=== PATIENT | female | born 1965 | race Caucasian/White ===

== ENCOUNTER → 2017-11-25 | Outpatient (CLI) | payer OTHER ==
[~2017-11-25] MED LIST: CROM10DR8 OP; GENT3.5O26 OP; GOLYTE PO; THYR15TA6 PO
== END ==
LOC: LAB 12:28
PROVIDERS: ATTEND Nurse Practitioner Family
DX: E03.8 Other specified hypothyroidism (principal); R53.83 Other fatigue; E53.8 Deficiency of other specified B group vitamins; E61.1 Iron deficiency; D51.0 Vitamin B12 deficiency anemia due to intrinsic factor deficiency
CPT/HCPCS: 36415; 82040; 82247; 82306; 82310; 82374; 82435; 82565; 82607; 82728; 82947; 84075; 84132; 84155; 84295; 84443; 84450; 84460; 84520; 85027

== ENCOUNTER → 2017-12-16 | Emergency (ER) | payer OTHER ==
[~2017-12-16] MED LIST changes: +IOPAMIDOL 76% 75 ML INFUS BTL 75 ML ONE; +NS(*) 0.9% 1000 ML BAG 1,000 ML IV ONE; +ONDA4TAB PO; +ONDANSETRON 4 MG/2 ML VIAL IVP ONE
--- NOTE | 2017-12-16 11:10 | ER Report ---
History and Physical Time Seen By MD: 11:09 Hx. of Stated Complaint: UNCONTROLLED NAUSEA SINCE 1AM. CHEST TIGHTNESS HPI/ROS CHIEF COMPLAINT: Nausea HISTORY OF PRESENT ILLNESS: 52-year-old female patient presents to emergency room with complaint of nausea. Patient states this started approximately 1:00 in the morning. She states she had some lower abdominal pain. She states that she had a bout of diarrhea. She states since then she's not had any bowel movements. She states that she is not been able to drink anything as infection does she vomits. She states that she may been able to keep down a small amount of water prescribed, but does has not been able to keep down very much. She states she did take some Pepto-Bismol with no improvement. She denies having any fevers, chills. Patient states she does have some chest tightness. Patient states she does have a history of appendectomy. REVIEW OF SYSTEMS: Respiratory: No cough, no dyspnea. Cardiovascular: No chest pain, no palpitations. Gastrointestinal: As noted above Musculoskeletal: No back pain. 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 Patient has a surgical history of appendectomy. Reviewed Nurses Notes: Yes Hx Smoking: No Smoking Status: Former Smoker Exposure to Second Hand Smoke?: No Hx Substance Use Disorder: No Hx Alcohol Use: No Constitutional Vital Sign - Last 24 Hours 12/16/17 12/16/17 12/16/17 12/16/17 10:59 11:03 11:04 11:14 Temp 98.3 Pulse ??? 114 112 Resp 16 B/P (MAP) 112/81 (91) 112/81 Pulse Ox 92 93 O2 Delivery Room Air 12/16/17 12/16/17 12/16/17 12/16/17 11:30 11:44 11:49 12:00 Pulse 114 101 B/P (MAP) 111/77 (88) 106/73 (84) Pulse Ox 94 95 12/16/17 12/16/17 12/16/17 12/16/17 12:04 12:19 12:30 12:34 Pulse 93 ??? 101 Resp 7 7 B/P (MAP) 111/76 (88) Pulse Ox 98 96 12/16/17 12/16/17 12/16/17 12:49 12:54 13:00 Pulse 96 104 Resp 9 9 B/P (MAP) 104/80 (88) Pulse Ox 98 98 Intake and Output 12/16/17 12/16/17 12/17/17 15:00 23:00 07:00 Intake Total 1000 ml Balance 1000 ml Physical Exam General Appearance: The patient is alert, has no immediate need for airway protection and no current signs of toxicity. ENT: Tympanic membranes are pearly-hyatt, auditory canals are patent, mixed mucous membranes are moist. Respiratory: Chest is non tender, lungs are clear to auscultation. Cardiac: regular rate and rhythm Gastrointestinal: Abdomen is soft and tender in the bilateral upper quadrants, no masses, bowel sounds are hyperactive in the right lower quadrant, hypoactive in the left upper and lower quadrants. Musculoskeletal: Neck: Neck is supple and non tender. Extremities have full range of motion and are non tender. Skin: No rashes or lesions. DIFFERENTIAL DIAGNOSIS: After history and physical exam differential diagnosis was considered for abdominal pain including but not limited to appendicitis, cholecystitis, gastritis and urinary tract infection. The differential is NE and bowel obstruction. Medical Decision Making Data Points Result Diagram: 12/16/17 1114 12/16/17 1114 Laboratory Hematology Test 12/16/17 11:14 12/16/17 11:42 Red Blood Count 5.17 M/uL (4.17-5.56) Mean Corpuscular Volume 89.8 fL (80.0-96.0) Mean Corpuscular Hemoglobin 31.0 pg (26.0-33.0) Mean Corpuscular Hemoglobin Concent 34.6 g/dL (32.0-36.0) Red Cell Distribution Width 13.7 % (11.5-14.5) Mean Platelet Volume 8.5 fL (7.2-11.1) Neutrophils (%) (Auto) 95.0 % (39.4-72.5) Lymphocytes (%) (Auto) 2.3 % (17.6-49.6) Monocytes (%) (Auto) 2.3 % (4.1-12.4) Eosinophils (%) (Auto) 0.2 % (0.4-6.7) Basophils (%) (Auto) 0.2 % (0.3-1.4) Nucleated RBC Relative Count (auto) 0.0 /100WBC Neutrophils # (Auto) 8.8 K/uL (2.0-7.4) Lymphocytes # (Auto) 0.2 K/uL (1.3-3.6) Monocytes # (Auto) 0.2 K/uL (0.3-1.0) Eosinophils # (Auto) 0.0 K/uL (0.0-0.5) Basophils # (Auto) 0.0 K/uL (0.0-0.1) Nucleated RBC Absolute Count (auto) 0.00 K/uL Sodium Level 141 mmol/L (137-145) Potassium Level 3.5 mmol/L (3.5-5.0) Chloride Level 106 mmol/L (98-107) Carbon Dioxide Level 21 mmol/L (22-31) Blood Urea Nitrogen 21 mg/dl (7-18) Creatinine 0.80 mg/dl (0.52-1.04) Glomerular Filtration Rate Calc > 60.0 Random Glucose 111 mg/dl (75-110) Calcium Level 9.2 mg/dl (8.4-10.2) Total Bilirubin 0.8 mg/dl (0.2-1.3) Aspartate Amino Transf (AST/SGOT) 23 U/L (0-35) Alanine Aminotransferase (ALT/SGPT) 30 U/L (0-56) Alkaline Phosphatase 90 U/L (0-126) Troponin I < 0.012 ng/ml Total Protein 7.5 gm/dl (6.3-8.2) Albumin 4.1 g/dl (3.5-5.0) Amylase Level 80 U/L (0-110) Lipase 67 U/L (23-300) Human Chorionic Gonadotropin, Qual Negative (NEGATIVE) Urine Color Yellow Urine Clarity Clear Urine pH 5.0 pH (4.8-9.5) Urine Specific [place] 1.026 Urine Protein Negative mg/dL (NEGATIVE) Urine Glucose (UA) Negative mg/dL (NEGATIVE) Urine Ketones 20 mg/dL (NEGATIVE) Urine Blood Negative (NEGATIVE) Urine Nitrite Negative (NEGATIVE) Urine Bilirubin Negative (NEGATIVE) Urine Urobilinogen Negative mg/dL (0.2-1.9) Urine Leukocyte Esterase Negative (NEGATIVE) Urine RBC None /HPF (0-2/HPF) Urine WBC 1 /HPF (0-5/HPF) Urine Squamous Epithelial Cells None /LPF (</=FEW) Urine Bacteria Negative /HPF (NONE-FEW) Urine Mucus Few /HPF (NONE-FEW) Chemistry Test 12/16/17 11:14 12/16/17 11:42 White Blood Count 9.3 k/uL (4.5-11.0) Red Blood Count 5.17 M/uL (4.17-5.56) Hemoglobin 16.1 g/dL (12.0-16.0) Hematocrit 46.4 % (34.0-47.0) Mean Corpuscular Volume 89.8 fL (80.0-96.0) Mean Corpuscular Hemoglobin 31.0 pg (26.0-33.0) Mean Corpuscular Hemoglobin Concent 34.6 g/dL (32.0-36.0) Red Cell Distribution Width 13.7 % (11.5-14.5) Platelet Count 220 K/uL (150-450) Mean Platelet Volume 8.5 fL (7.2-11.1) Neutrophils (%) (Auto) 95.0 % (39.4-72.5) Lymphocytes (%) (Auto) 2.3 % (17.6-49.6) Monocytes (%) (Auto) 2.3 % (4.1-12.4) Eosinophils (%) (Auto) 0.2 % (0.4-6.7) Basophils (%) (Auto) 0.2 % (0.3-1.4) Nucleated RBC Relative Count (auto) 0.0 /100WBC Neutrophils # (Auto) 8.8 K/uL (2.0-7.4) Lymphocytes # (Auto) 0.2 K/uL (1.3-3.6) Monocytes # (Auto) 0.2 K/uL (0.3-1.0) Eosinophils # (Auto) 0.0 K/uL (0.0-0.5) Basophils # (Auto) 0.0 K/uL (0.0-0.1) Nucleated RBC Absolute Count (auto) 0.00 K/uL Glomerular Filtration Rate Calc > 60.0 Calcium Level 9.2 mg/dl (8.4-10.2) Total Bilirubin 0.8 mg/dl (0.2-1.3) Aspartate Amino Transf (AST/SGOT) 23 U/L (0-35) Alanine Aminotransferase (ALT/SGPT) 30 U/L (0-56) Alkaline Phosphatase 90 U/L (0-126) Troponin I < 0.012 ng/ml Total Protein 7.5 gm/dl (6.3-8.2) Albumin 4.1 g/dl (3.5-5.0) Amylase Level 80 U/L (0-110) Lipase 67 U/L (23-300) Human Chorionic Gonadotropin, Qual Negative (NEGATIVE) Urine Color Yellow Urine Clarity Clear Urine pH 5.0 pH (4.8-9.5) Urine Specific [place] 1.026 Urine Protein Negative mg/dL (NEGATIVE) Urine Glucose (UA) Negative mg/dL (NEGATIVE) Urine Ketones 20 mg/dL (NEGATIVE) Urine Blood Negative (NEGATIVE) Urine Nitrite Negative (NEGATIVE) Urine Bilirubin Negative (NEGATIVE) Urine Urobilinogen Negative mg/dL (0.2-1.9) Urine Leukocyte Esterase Negative (NEGATIVE) Urine RBC None /HPF (0-2/HPF) Urine WBC 1 /HPF (0-5/HPF) Urine Squamous Epithelial Cells None /LPF (</=FEW) Urine Bacteria Negative /HPF (NONE-FEW) Urine Mucus Few /HPF (NONE-FEW) Urinalysis Test 12/16/17 11:42 Urine Color Yellow Urine Clarity Clear Urine pH 5.0 pH (4.8-9.5) Urine Specific [place] 1.026 Urine Protein Negative mg/dL (NEGATIVE) Urine Glucose (UA) Negative mg/dL (NEGATIVE) Urine Ketones 20 mg/dL (NEGATIVE) Urine Blood Negative (NEGATIVE) Urine Nitrite Negative (NEGATIVE) Urine Bilirubin Negative (NEGATIVE) Urine Urobilinogen Negative mg/dL (0.2-1.9) Urine Leukocyte Esterase Negative (NEGATIVE) Urine RBC None /HPF (0-2/HPF) Urine WBC 1 /HPF (0-5/HPF) Urine Squamous Epithelial Cells None /LPF (</=FEW) Urine Bacteria Negative /HPF (NONE-FEW) Urine Mucus Few /HPF (NONE-FEW) EKG/Imaging EKG Interpretation 12 lead EKG: Rhythm: Sinus tachycardia with a ventricular rate of 105 bpm [place]: normal QRS: normal ST segments: normal Imaging CT abdomen and pelvis with IV contrast Indication: Abdominal pain and vomiting. Comparison: None available. . Technique: Axial CT images were obtained through the abdomen and pelvis during injection of nonionic iodinated intravenous contrast. Reformatted coronal and sagittal images were also obtained. One of the following dose optimization techniques was utilized in the performance of this exam: Automated exposure control; adjustment of the mA and/ or kV according to the patient's size; or use of an iterative reconstruction technique. Specific details can be referenced in the facility's radiology CT exam operational policy. Contrast: 75 ml of Isovue-370 IV contrast. Findings: Lower lung condon: Limited views lower lung field are unremarkable. Liver: No focal parenchymal abnormality of the liver. Biliary: Gallbladder appears unremarkable as well as the intra and extra hepatic biliary system. Pancreas: Normal appearance. Spleen: Normal appearance. Adrenal glands: Unremarkable. Kidneys / retroperitoneum: No evidence of nephrolithiasis or hydronephrosis. No focal normality. Bowel / peritoneum / mesenteries: The visualized gastrointestinal tract is within normal limits. The appendix is not visualized. No secondary signs of appendicitis. The stomach is unremarkable. No free air, free fluid, fluid collections or areas of inflammation. Small umbilical hernia containing fat. Lymph node assessment: No pathologic adenopathy identified. Pelvic structures: The uterus shows at least 3 hypodense nodules, largest measuring 1.8 cm. The uterus and ovaries otherwise unremarkable. The remaining pelvic structures visualized within normal limits. Vessels: No significant atherosclerotic calcifications seen throughout a nonaneurysmal abdominal aorta and branches. Musculoskeletal / Body wall: No acute or aggressive osseous abnormality. IMPRESSION: 1. No acute intra-abdominal abnormality 2. Hypodense nodules in the uterus are most likely small fibroids. Report Dictated By: Cory Acevedo at 12/16/2017 12:34 PM Report E-Signed By: Cory Acevedo at 12/16/2017 12:40 PM 2 VIEWS CHEST INDICATION: Chest tightness. COMPARISON: None available FINDINGS: Cardiomediastinal silhouette and pulmonary vessels within normal limits. There is no focal infiltrate or lobar consolidation. There is no pneumothorax or pleural effusion. No nodule. Upper abdomen is unremarkable. No acute bony abnormality. IMPRESSION: 1. No acute cardiopulmonary process. Report Dictated By: Cory Acevedo at 12/16/2017 12:30 PM Report E-Signed By: Cory Acevedo at 12/16/2017 12:32 PM ED Course/Re-evaluation ED Course Patient was admitted and examined, history and physical were obtained. Differential diagnoses were considered. On reexamination patient had some tenderness in the bilateral upper quadrants, bowel sounds are hyperactive in the right lower quadrant. With patient having a history of an appendicitis that resulted in pick surgical scar I was more concerned about possible adhesion and small bowel obstruction. A CBC, CMP, CT scan of abdomen and pelvis were done. Labs were unremarkable, CT scan also showed no acute findings. I discussed finding with the patient. I believe she is likely having a gastroenteritis. Patient did receive 4 mg Zofran here in the emergency room. She states she did feel better after that. We did trial her on some water and had no worsening nausea or vomiting. We will go ahead and discharge patient home at this time. She is to take Pepto-Bismol as needed for diarrhea and cramping. She is follow- up with her primary care provider next week. She is return to emergency room if condition worsens. Patient and her verbalized understanding and agreement with plan. Decision to Disposition Date: Dec 16, 2017 Decision to Disposition Time: 13:22 Depart Departure Latest Vital Signs Vital Signs Date Time Temp Pulse Resp B/P (MAP) Pulse Ox O2 Delivery O2 Flow Rate FiO2 12/16/17 13:00 104/80 (88) 12/16/17 12:54 104 9 98 12/16/17 11:04 98.3 Room Air Impression: Primary Impression: Gastroenteritis Condition: Improved Disposition: HOME OR SELF-CARE Referrals: KINDRA FLEMING (PCP) New Scripts Ondansetron (ZOFRAN ODT) 4 Mg Tab.rapdis 4 MG PO Q6H Y for NAUSEA/VOMITING, #20 TAB.MATILDE Prov: JUVE HENDERSON 12/16/17 Patient Instructions: Gastroenteritis (ED) Additional Instructions: Increase fluid intake. Clear liquid diet for the next 24-48 hours. After that you may advance diet as tolerated starting with complex carbohydrates ; rice, bread or pasta. Follow up with your primary care provider in the next week. Return to the ER if condition worsens. You may take over the counter Pepto Bismol as needed for cramping, diarrhea and discomfort. JUVE HENDERSON Dec 16, 2017 11:10
--- NOTE | 2017-12-16 11:33 | EKG ---
FACILITY: [facility] - [place] PATIENT NAME: ANAT RODRIGUEZ : [id number] MR: [id number] V: [id number] EXAM DATE: ORDERING PHYSICIAN: JUVE HENDERSON TECHNOLOGIST: SHADY Bell Reason : CHEST PRESSURE Blood Pressure : / mmHG Vent. Rate : 105 BPM Atrial Rate : 105 BPM P-R Int : 176 ms QRS Dur : 076 ms QT Int : 304 ms P-R-T Axes : 061 077 070 degrees QTc Int : 401 ms Sinus tachycardia Cannot rule out Anterior infarct , age undetermined T inversion consistent with ant/sep ischemia vs normal variant Diffuse, non-specific, T flattening No previous ECGs available Confirmed by LISETTE GAMINO ([id number]) on 12/16/2017 12:37:01 PM Referred By: JVUE Confirmed By:LISETTE GAMINO
[2017-12-16 11:37] LABS: PLATELET COUNT, AUTOMATED 220 K/uL (150-450)
--- NOTE | 2017-12-16 12:36 | RADIOLOGY IMAGING REPORT ---
[facility] PATIENT NAME: Renetta Alexander : 1965 MR: [id number] V: [id number] EXAM DATE: ORDERING PHYSICIAN: JUVE HENDERSON TECHNOLOGIST: Location: Patient: Renetta Alexander : 1965 Visit/Account:[id number] Date of Sevice: 12/16/2017 2 VIEWS CHEST INDICATION: Chest tightness. COMPARISON: None available FINDINGS: Cardiomediastinal silhouette and pulmonary vessels within normal limits. There is no focal infiltrate or lobar consolidation. There is no pneumothorax or pleural effusion. No nodule. Upper abdomen is unremarkable. No acute bony abnormality. IMPRESSION: 1. No acute cardiopulmonary process. Report Dictated By: Coyr Acevedo at 12/16/2017 12:30 PM Report E-Signed By: Cory Acevedo at 12/16/2017 12:32 PM WSN:[id number]
--- NOTE | 2017-12-16 12:44 | RADIOLOGY IMAGING REPORT ---
FACILITY: [facility] - [place] PATIENT NAME: Renetta Alexander : 1965 MR: [id number] V: [id number] EXAM DATE: ORDERING PHYSICIAN: JUVE HENDERSON TECHNOLOGIST: Location: [facility] Patient: Renetta Alexander : 1965 Visit/Account:[id number] Date of Sevice: 12/16/2017 CT abdomen and pelvis with IV contrast Indication: Abdominal pain and vomiting. Comparison: None available. . Technique: Axial CT images were obtained through the abdomen and pelvis during injection of nonioni c iodinated intravenous contrast. Reformatted coronal and sagittal images were also obtained. One of the following dose optimization techniques was utilized in the performance of this exam: Autom ated exposure control; adjustment of the mA and/or kV according to the patient's size; or use of an i terative reconstruction technique. Specific details can be referenced in the facility's radiology C T exam operational policy. Contrast: 75 ml of Isovue-370 IV contrast. Findings: Lower lung condon: Limited views lower lung field are unremarkable. Liver: No focal parenchymal abnormality of the liver. Biliary: Gallbladder appears unremarkable as well as the intra and extra hepatic biliary system. Pancreas: Normal appearance. Spleen: Normal appearance. Adrenal glands: Unremarkable. Kidneys / retroperitoneum: No evidence of nephrolithiasis or hydronephrosis. No focal normality. Bowel / peritoneum / mesenteries: The visualized gastrointestinal tract is within normal limits. The appendix is not visualized. No secondary signs of appendicitis. The stomach is unremarkable. No free air, free fluid, fluid collections or areas of inflammation. Small umbilical hernia containin g fat. Lymph node assessment: No pathologic adenopathy identified. Pelvic structures: The uterus shows at least 3 hypodense nodules, largest measuring 1.8 cm. The ut erus and ovaries otherwise unremarkable. The remaining pelvic structures visualized within normal matson its. Vessels: No significant atherosclerotic calcifications seen throughout a nonaneurysmal abdominal aort a and branches. Musculoskeletal / Body wall: No acute or aggressive osseous abnormality. IMPRESSION: 1. No acute intra-abdominal abnormality 2. Hypodense nodules in the uterus are most likely small fibroids. Report Dictated By: Cory Acevedo at 12/16/2017 12:34 PM Report E-Signed By: Cory Acevedo at 12/16/2017 12:40 PM WSN:[id number]
[2017-12-16 13:00] VITALS: BP 104/80
== END ==
LOC: ER 11:00
DX: K52.9 Noninfective gastroenteritis and colitis, unspecified (principal)
CPT/HCPCS: 71046; 74177; 81001; 82150; 83690; 84484; 84703; 85025; 93005; 96361; 96374; 99284; J2405; J7030; Q9967; 82040; 82247; 82310; 82374; 82435; 82565; 82947; 84075; 84132; 84155; 84295; 84450; 84460; 84520

== ENCOUNTER → 2017-12-23 | Outpatient (CLI) | payer OTHER ==
[~2017-12-23] MED LIST changes: -IOPAMIDOL 76% 75 ML INFUS BTL 75 ML ONE; -NS(*) 0.9% 1000 ML BAG 1,000 ML IV ONE; -ONDANSETRON 4 MG/2 ML VIAL IVP ONE
== END ==
LOC: LAB 09:31
PROVIDERS: ATTEND Nurse Practitioner Family
DX: D51.0 Vitamin B12 deficiency anemia due to intrinsic factor deficiency (principal)
CPT/HCPCS: 36415; 82607; 83921

== ENCOUNTER → 2018-02-01 | Outpatient (REF) ==
[2018-02-01 09:53] LABS: LDL CHOLESTEROL 127 mg/dl
== END ==
DX: Z02.9 Encounter for administrative examinations, unspecified (principal)

== ENCOUNTER → 2018-02-01 | Outpatient (CLI) | payer OTHER | LOC: LAB 07:50 | PROVIDERS: ATTEND Family Medicine | DX: E03.9 Hypothyroidism, unspecified (principal) | CPT/HCPCS: 84439; 84481; 86376; 86800 ==

== ENCOUNTER → 2018-02-17 | Outpatient (CLI) | payer OTHER ==
--- NOTE | 2018-02-18 15:44 | RADIOLOGY IMAGING REPORT ---
[place] [facility] [place] ANAT RODRIGUEZ : [id number] MR: [id number] V: [id number] EXAM DATE: [id number] ORDERING PHYSICIAN: KRISTI JESSICA TECHNOLOGIST: Jacquelyn Isaacs PROCEDURE:BILATERAL DIGITAL SCREENING MAMMOGRAM WITH CAD ASSISTED INTERPRETATION & 3D TOMOSYNTHESIS COMPARISON:Prior mammograms dated 01/08/17, 12/31/16, 09/24/15, 08/29/14, 04/03/13, 03/15/13 INDICATIONS:screening FINDINGS: Moderately fibroglandular tissue is seen throughout the breasts. The parenchymal pattern has remained stable allowing for difference in mammographic technique & patient positioning. There is no evidence of malignant appearing mass, malignant appearing calcification or other secondary sign of malignancy in either breast. DIAGNOSTIC CATEGORY 1--NEGATIVE. RECOMMENDATIONS: ROUTINE MAMMOGRAM AND CLINICAL EVALUATION. IMPRESSION: BIRADS 1: Negative No significant abnormality is seen. Dictated by: Laquita Haque M.D. on 02/17/2018 at 9:14 Transcribed by: QI on 02/17/2018 at 12:32 Approved by: Laquita Haque M.D. on 02/18/2018 at 15:44 [facility]
== END ==
LOC: MAMO 04:11
PROVIDERS: ATTEND Family Medicine
DX: Z12.31 Encounter for screening mammogram for malignant neoplasm of breast (principal)
CPT/HCPCS: 77063; 77067

== ENCOUNTER → 2018-02-17 | Outpatient (CLI) | payer OTHER ==
--- NOTE | 2018-02-17 16:29 | RADIOLOGY IMAGING REPORT ---
FACILITY: [facility] [place] PATIENT NAME: Renetta Alexander : 1965 MR: [id number] V: [id number] EXAM DATE: ORDERING PHYSICIAN: KRISTI JESSICA [place]CHN[place]: [place] [facility] [place] : 1965 Visit/Account:[id number] Date of Sevice: 02/17/2018 PELVIC HISTORY: Uterine enlargement TECHNIQUE: Transvaginal and transabdominal ultrasound pelvis. COMPARISON: CT abdomen pelvis December 16, 2017 FINDINGS: Uterus: ; 7.2 cm length x 2.5 cm AP x 4.2 cm transverse. Myometrium: Heterogeneous.. There are two contiguous hypoechoic slightly heterogeneous masses along the anterior aspect of the body the uterus one measuring 1 x 0.8 x 0.8 cm and one measuring 1.9 x 1.2 x 1.5 cm likely representing fibroids. There is a very subtle hypoechoic structure posterior aspect uterine body measuring 1 x 0.7 x 0.9 cm which could represent an additional fibroid. Endometrium: Unremarkable; double thickness 7.3 mm. Cervix: Nabothian cysts. Ovaries: Right - 2.5 x 1 x 2.4 cm Left - 1.7 x 0.8 x 2.2 cm Blood flow is documented in each ovary by duplex Doppler ultrasound. Adnexa: Grossly unremarkable. Free pelvic fluid: Mild. IMPRESSION: Uterine fibroids as described above largest measuring approximately 1.9 cm in diameter Mild free pelvic fluid Report Dictated By: Laquita Haque MD at 02/17/2018 4:21 PM Report E-Signed By: Laquita Haque MD at 02/17/2018 4:25 PM WSN:[email or web address]
== END ==
LOC: US 11:36
PROVIDERS: ATTEND Family Medicine
DX: D25.9 Leiomyoma of uterus, unspecified (principal); N88.8 Other specified noninflammatory disorders of cervix uteri
CPT/HCPCS: 76856

== ENCOUNTER → 2018-06-03 | Outpatient (CLI) | payer OTHER ==
[~2018-06-03] MED LIST changes: +LIOT5TAB18 PO; +RANI-325 PO
[2018-06-03 13:33] LABS: PLATELET COUNT, AUTOMATED 235 K/uL (150-450)
--- NOTE | 2018-06-03 16:16 | RADIOLOGY IMAGING REPORT ---
[place] [facility] [place] NAME: Renetta Alexander : 1965 MR: [id number] V: [id number] EXAM DATE: ORDERING PHYSICIAN: LUCIAN GAONA TECHNOLOGIST: Location: [facility] - [place], [place] Patient: Renetta Alexander : 1965 Visit/Account:[id number] Date of Sevice: 06/03/2018 KNEE 4 VIEW RIGHT Indication: Right knee swelling for two days Comparison: None available Findings: No evidence of fracture, dislocation, or acute osseous abnormality of the right knee. The joint spaces are well-maintained, but within the anterior medial joint space, small calcific dens ities are present consistent with loose bodies.. No evidence of joint effusion. There is no focal soft tissue abnormality. No evidence of radiopaque foreign body. IMPRESSION: 1. Loose bodies are noted within the medial anterior joint space. MRI may be of further benefit in evaluating the underlying articular surfaces. Report Dictated By: Abel Berg at 06/03/2018 3:57 PM Report E-Signed By: Abel Berg at 06/03/2018 4:11 PM WSN:[email or web address]
== END ==
LOC: LAB 13:20
PROVIDERS: ATTEND Nurse Practitioner Primary Care
DX: M25.561 Pain in right knee (principal)
CPT/HCPCS: 36415; 73564; 85025; 85651; 86038; 86140; 86430

== ENCOUNTER → 2018-06-17 | Outpatient (CLI) | payer OTHER ==
--- NOTE | 2018-06-17 17:06 | RADIOLOGY IMAGING REPORT ---
FACILITY: [facility] - [place] PATIENT NAME: Renetta Alexander : 1965 MR: [id number] V: [id number] EXAM DATE: ORDERING PHYSICIAN: MARTHA HARTMAN TECHNOLOGIST: Location: [facility] Patient: Renetta Alexander : 1965 Visit/Account:[id number] Date of Sevice: 06/17/2018 CERVICAL SPINE W/OBL F/E Indication: Pain., Comparison: None available. Findings: The prevertebral soft tissues are within normal limits. The vertebral body heights are well maintained. There is moderate to severe degenerative disc space disease present at C5-6. The remainder the disc spaces show only mild narrowing. At C5-6 there is also a mild grade 1 retrolisthesis measuring 3 mm. With flexion and extension no dynamic instability is identified. Oblique views show mild bilateral neural foraminal narrowing at C5-6. IMPRESSION: 1. Moderate to severe degenerative disc space disease at C5-6 with underlying grade 1 spondylolisthe sis. Mild bilateral neural foraminal narrowing is present at this level. The remainder of the cervi rafael spine shows only mild degenerative change. Report Dictated By: Abel Berg at 06/17/2018 4:59 PM Report E-Signed By: Abel Berg at 06/17/2018 5:01 PM WSN:[email or web address]
== END ==
LOC: RAD 16:04
PROVIDERS: ATTEND Chiropractor
DX: M43.12 Spondylolisthesis, cervical region (principal)
CPT/HCPCS: 72052

== ENCOUNTER → 2018-06-28 | Outpatient (CLI) | payer OTHER | LOC: LAB 07:43 | PROVIDERS: ATTEND Family Medicine | DX: E03.9 Hypothyroidism, unspecified (principal) | CPT/HCPCS: 36415; 84439; 84443; 84481 ==

== ENCOUNTER → 2018-11-29 | Outpatient (CLI) | payer OTHER | LOC: LAB 07:03 | PROVIDERS: ATTEND Family Medicine | DX: E55.9 Vitamin D deficiency, unspecified (principal); R73.01 Impaired fasting glucose | CPT/HCPCS: 82306; 83036 ==

== ENCOUNTER → 2018-11-29 | Outpatient (REF) ==
[2018-11-29 07:41] LABS: LDL CHOLESTEROL 102 mg/dl
== END ==
DX: Z02.9 Encounter for administrative examinations, unspecified (principal)

== ENCOUNTER → 2018-12-02 | Outpatient (CLI) | payer OTHER ==
--- NOTE | 2018-12-02 18:50 | RADIOLOGY IMAGING REPORT ---
FACILITY: [facility] PATIENT NAME: Renetta Alexander : 1965 MR: [id number] V: [id number] EXAM DATE: ORDERING PHYSICIAN: SPENSER OCHOA TECHNOLOGIST: Location: [facility] Patient: Renetta Alexander : 1965 Visit/Account:[id number] Date of Sevice: 12/02/2018 Transvaginal/transabdominal pelvic ultrasound. HISTORY: Postmenopausal bleeding. COMPARISON: 02/17/2018. The uterus measures 7.4 cm in sagittal length. A 1.4 cm heterogeneous mass consistent with a fibroid is present in the myometrium of the uterine fundus, slightly increased in size compared to previous. A 1.9 cm heterogeneous mass consistent with a fibroid is present in the myometrium of the upper uteri ne body, essentially unchanged. Elsewhere the uterus is mildly heterogeneous. The endometrial stripe is homogeneous measuring 6 mm in thickness. No free fluid. The adnexal vessels are unremarkable. The right ovary is unremarkable measuring 1.9 cm in length. The left ovary is unremarkable measuring 1.7 cm in length. Ovarian blood flow is normal bilaterally. IMPRESSION: 1.4 cm uterine fibroid, slightly increased compared to previous. 1.9 cm uterine fibroid, unchanged. Minimal uterine adenomyosis. Negative ovaries. Report Dictated By: Ignacio Lewis MD at 12/02/2018 6:43 PM Report E-Signed By: Ignacio Lewis MD at 12/02/2018 6:46 PM WSN:[id number]
== END ==
LOC: US 04:11
PROVIDERS: ATTEND Advanced Practice Midwife
DX: D25.9 Leiomyoma of uterus, unspecified (principal); N80.0 Endometriosis of uterus
CPT/HCPCS: 76856

== ENCOUNTER → 2019-01-23 | Outpatient (CLI) | payer OTHER ==
[~2019-01-23] MED LIST changes: +ESTR1POW41 MC; +ESTR42.5 PV
--- NOTE | 2019-01-23 14:54 | RADIOLOGY IMAGING REPORT ---
FACILITY: [facility] [place] PATIENT NAME: Renetta Alexander : 1965 MR: [id number] V: [id number] EXAM DATE: [id number] ORDERING PHYSICIAN: LUCIAN GAONA TECHNOLOGIST: Location: [facility] Patient: Renetta Alexander : 1965 Visit/Account:[id number] Date of Sevice: 01/23/2019 Exam type: KNEE 4 VIEW LEFT History: Left knee pain Comparison: Right knee June 03, 2018. Findings: Four views of the left knee are submitted There is no evidence of acute fracture or dislocation involving the left knee. There is very mild na rrowing of the patellofemoral compartment and medial compartment. No lytic or blastic bone lesions a re identified IMPRESSION: 1. There is very mild narrowing the patellofemoral compartment and medial compartment of the left kidney consistent with very mild degenerative changes Report Dictated By: Laquita Haque MD at 01/23/2019 2:49 PM Report E-Signed By: Laquita Haque MD at 01/23/2019 2:51 PM WSN:[id number]
== END ==
LOC: RAD 12:41
PROVIDERS: ATTEND Nurse Practitioner Primary Care
DX: M17.12 Unilateral primary osteoarthritis, left knee (principal)
CPT/HCPCS: 73564

== ENCOUNTER → 2019-02-06 | Outpatient (CLI) | payer OTHER | LOC: LAB 11:20 | PROVIDERS: ATTEND Family Medicine | DX: E03.9 Hypothyroidism, unspecified (principal) | CPT/HCPCS: 36415; 84439; 84443; 84481 ==

== ENCOUNTER → 2019-02-16 | Outpatient (CLI) | payer OTHER ==
--- NOTE | 2019-02-16 14:41 | RADIOLOGY IMAGING REPORT ---
FAC[place] [facility] [place]IENT NAME: Renetta Alexander : 1965 MR: [id number] V: [id number] EXAM DATE: ORDERING PHYSICIAN: VINCE MARKS TECHNOLOGIST: Location: [facility] Patient: Renetta Alexander : 1965 Visit/Account:[id number] Date of Sevice: 02/16/2019 MRI left knee without contrast Indication: Left knee pain. Comparison: Plain films 01/23/2019 are reviewed. Technique: Multiplanar, multisequence MRI examination is performed of the left knee without contrast. Findings: Examination of the medial compartment demonstrates focal intrameniscal signal within the medial menis cus at the junction of the body and the posterior horn. This does not meet strict criteria for a tear and likely reflects meniscal degeneration. The articular cartilage surfaces are normal. Examination of the lateral compartment demonstrates a normal lateral meniscus. Focal areas of chondro sis/fissuring involving the central lateral tibial plateau surface without edema-like signal. Examination of the patellofemoral compartment demonstrates severe chondrosis involving the median rid ge of the patella and extending along the lateral patellar surface. Multifocal areas of subchondral e alina-like signal are seen. There is adjacent lateral trochlear chondrosis which is less severe. There is osteophyte production. ACL and PCL are intact. The MCL is intact. There is mild edema surrounding the MCL at joint line. This could reflect a low-gr mariela sprain. Correlate clinically. The lateral collateral ligament complex is maintained. The extensor mechanism is intact. Intermediate sized joint effusion is seen. This extends into a popliteal cyst. There are 2 small join t bodies seen within the superior margin of the medial joint space deep to the medial gastrocnemius i nsertion. These measure 3 mm in size. IMPRESSION: 1. Intact left knee menisci and cruciate ligaments. Focal area of suspected meniscal degeneration inv olves the medial meniscus at the junction of the body and the posterior horn. 2. Severe patellofemoral compartment predominant osteoarthritis of the left knee. This can be seen wi th CPPD arthropathy. Correlate clinically. 3. Intermediate joint effusion which extends into a popliteal cyst. 4. Small joint bodies as described above. Report Dictated By: Bossman Wall at 02/16/2019 2:23 PM Report E-Signed By: Bossman Wall at 02/16/2019 2:33 PM WSN:[id number]
== END ==
LOC: MRI 00:05
PROVIDERS: ATTEND Orthopaedic Surgery
DX: M25.562 Pain in left knee (principal)

== ENCOUNTER → 2019-03-22 | Outpatient (CLI) | payer OTHER | LOC: LAB 08:50 | PROVIDERS: ATTEND Family Medicine | DX: E03.9 Hypothyroidism, unspecified (principal) | CPT/HCPCS: 36415; 84439; 84443; 84481 ==

== ENCOUNTER → 2019-04-26 | Outpatient (CLI) | payer OTHER | LOC: LAB 07:06 | PROVIDERS: ATTEND Family Medicine | DX: E03.9 Hypothyroidism, unspecified (principal) | CPT/HCPCS: 36415; 84439; 84443; 84481 ==

== ENCOUNTER 2019-05-04 07:00 | Outpatient (RCR) | payer OTHER ==
--- NOTE | 2019-03-02 22:11 | PT INITIAL EVALUATION ---
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 She reports that her L knee catches randomly and does not occur each day. She reports that she has difficulties with squatting, looking under the bed, and hiking. She reports that her L knee feels much weaker than her R knee. Furthermore, she reports that she feels like the L knee gives out following a hike [place]. Pain location is anterior knee. Pain scale is 2 on a ten point pain scale. 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 Strength: L hip abduction, extension, adduction, L quad, L VMO, L hamstrin- /5. R hip abduction, extension, adduction, R quad, R VMO, R hamstrin/5. Upper core: 4/5. Middle Core: 4-/5. Lower Core: 2+/5. B ankle PF and DF: 5/5. Palpation: TTP: she was not TTP throughout the visit. Special Tests: L VMO: engaged 0/10. minimal restriction with patella medial/lateral/superior/inferior, Mobility: Independent Gait: She demonstrated the following gait mechanics without an AD: decreased velocity, decreased R step length, and increased lateral trunk movement. Balance: Will test in the future ASSESSMENT: Renetta will benefit from skilled physical therapy addressing the listed impairments to improve function, QOL, and return to prior level of function. Short Term Goals 6 weeks: Pt will demonstrate significant improvements with VMO strength, hip abductors, core, hip extensors, hip adductors strength from baseline to 4+/5 or greater to improve function and QOL. 6 weeks: Pt will be independent with home exercise program. 6 weeks: Pt will be able to return to work and sports related activities without any knee pain to return to prior level of function. Patient's Goals abolish knee pain and become independent with home exercise program PLAN: Patient to be seen for Manual Therapy/STM/MET Strengthening/condition Range of Motion Work Hardening/Cond Stretching Neuromuscular Re-ed Closed Chain Program Electrical Stim Posture/Body mechanics Gait Trg/Balance Trg Biofeedback Home Exercise Program Therapeutic Activities 2-3x/week for 6 Weeks If you have any questions, comments, or concerns about this report or plan, please contact me at . Thank you, Oskar Jamil, PT, DPT MTDD
--- NOTE | 2019-03-31 08:13 | PT PLAN OF CARE ---
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, Treatment Diagnosis: same Date of Onset: 08/01/18 Date of Initial Evaluation: 03/01/19 Date patient was last seen: 03/31/19 Number of treatments: 10 Number of cancellations/No shows: 0 INTERVENTIONS: Manual Therapy/STM/MET Strengthening/condition Range of Motion Work Hardening/Cond Stretching Neuromuscular Re-ed Closed Chain Program Electrical Stim Posture/Body mechanics Gait Trg/Balance Trg Biofeedback Home Exercise Program Therapeutic Activities GOALS: 6 weeks: Pt will demonstrate significant improvements with VMO strength, hip abductors, core, hip extensors, hip adductors strength from baseline to 4+/5 or greater to improve function and QOL. 6 weeks: Pt will be independent with home exercise program. 6 weeks: Pt will be able to return to work and sports related activities without any knee pain to return to prior level of function. PATIENT'S GOAL: abolish knee pain and become independent with home exercise program Status of Patient's Goals: In Progress Patient Compliance: Good Prognosis: Good Reasons for continuing therapy: Renetta shows improved LE strength and function overall with good alignment in most open chain exercise. Pt hip strength shows significant improvements however quad strength and VMO activation remains with delayed. Additionally in closed chain exercises pt remains to require cuing for knee alignment secondary to frequent medial knee or hip collapse. Further PT is indicated for this patient to continue to improve functional strength and mobility for decreased pain with ADL's and recreational activities. ROM: L knee flexion and extension: full with muscular end feels as she was equal to her L knee flexion and extension. Strength: Hip: flexion: B 4/5, ext: L 4+/5, 4/5, abd: B 4+/5, add: B 5-/5. Knee: quad: L 4/5, 5/5, VMO activation: 10/10 on R with quick VMO release on eccentric, 7/10 L, HS: B 4+/5. Core: Lower abdominal: 4/5, Upper core: 5/5, middle: 4+/5. Ankle: PF/DF: B 5/5 Mobility: Squatting: Bilateral: 4/5 with good alignment, 1/5 with L medial knee collapse, increased loading on L. SLS: Left: 5/5 Medial knee hip collapse with medial knee excursion, Right: 5/5 with good alignment, 1/5 with medial knee excursion If you have any questions please feel free to contact me at [phone]. Thank you, Beronica Lara, PT, DPT, CLT MTDD
[~2019-05-04 07:00] MED LIST changes: +[UNRECOGNIZED DRUG - CODE] MC
--- NOTE | 2019-05-11 14:36 | PT PLAN OF CARE ---
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, Treatment Diagnosis: same Date of Onset: 08/01/18 Date of Initial Evaluation: 03/01/19 Date patient was last seen: 05/04/19 Number of treatments: 19 Number of cancellations/No shows: 0 INTERVENTIONS: Manual Therapy/STM/MET Strengthening/condition Range of Motion Work Hardening/Cond Stretching Neuromuscular Re-ed Closed Chain Program Electrical Stim Posture/Body mechanics Gait Trg/Balance Trg Biofeedback Home Exercise Program Therapeutic Activities GOALS: 6 weeks: Pt will demonstrate significant improvements with VMO strength, hip abductors, core, hip extensors, hip adductors strength from baseline to 4+/5 or greater to improve function and QOL. MET 6 weeks: Pt will be independent with home exercise program. MET 6 weeks: Pt will be able to return to work and sports related activities without any knee pain to return to prior level of function. MET PATIENT'S GOAL: abolish knee pain and become independent with home exercise program Status of Patient's Goals: In Progress Patient Compliance: Good Prognosis: Good Reasons for continuing therapy: Renetta shows improved LE strength and function overall with excellent alignment in open chain and closed chain exercises/activities. Pt hip strength shows significant improvements with excellent quad strength and VMO activation and is no longer delayed. Additionally in closed chain exercises pt is able to prevent and maintain excellent knee alignment with single leg or B ther ex.. Pt has met all of her goals and has demonstrated a return to prior level of function and is independent with her home exercise program. As a result, she will be discharged from PT to [facility]. ROM: L knee flexion and extension: full with muscular end feels as she was equal to her L knee flexion and extension. Strength: Hip: flexion: B 5/5, ext: L 5/5, 4+/5, abd: B 5/5, add: B 5/5. Knee: quad: L 4+/5, 5/5, VMO activation: 10/10 on R with quick VMO release on eccentric, 10/10 L, HS: B 5/5. Core: Lower abdominal: 4+/5, Upper core: 5/5, middle: 5/5. Ankle: PF/DF: B 5/5 Mobility: Squatting: Bilateral: 5/5 with good alignment, 5/5 with good alignment, increased loading on L. SLS: Left: 5/5 excellent alignment, Right: 5/5 with good alignment, 5/5 with good alignment If you have any questions please feel free to contact me at [phone]. Thank you, Oskar Jamil, PT, DPT PIAD
== END 2019-05-04 18:00 | disposition home or self-care (01) ==
LOC: PT 07:00
PROVIDERS: ATTEND Orthopaedic Surgery
DX: M25.562 Pain in left knee (principal); M22.2X2 Patellofemoral disorders, left knee
CPT/HCPCS: 97161